=== PATIENT | female | born 1985 | race Caucasian/White ===

== ENCOUNTER 2019-09-13 19:52 | Emergency (ER) | payer BC ==
[~2019-09-13] VITALS: Ht 175.3 cm; Wt 68.9 kg
--- NOTE | 2019-09-13 20:33 | NUR ---
PT TO ROOM FROM LOBBY
--- NOTE | 2019-09-13 21:02 | NUR ---
DR. CORNEJO AT BEDSIDE.
[2019-09-13 21:52] VITALS: BP 113/74
--- NOTE | 2019-09-13 21:52 | NUR ---
PT REPORTS RELIEF AFTER DRINKING WATER. ALL VITALS STABLE. ERP AWARE.
--- NOTE | 2019-09-13 22:12 | NUR ---
Patient/Caregiver given discharge instructions and they have confirmed that they understand the instructions. Patient ambulatory with steady gait.
== END 2019-09-13 22:32 | disposition home or self-care (01) ==
LOC: ED 21:13
DX: S62.515A Nondisplaced fracture of proximal phalanx of left thumb, initial encounter for closed fracture (principal); S01.81XA Laceration without foreign body of other part of head, initial encounter; S60.411A Abrasion of left index finger, initial encounter; S60.413A Abrasion of left middle finger, initial encounter; S60.415A Abrasion of left ring finger, initial encounter; S60.417A Abrasion of left little finger, initial encounter; W01.0XXA Fall on same level from slipping, tripping and stumbling without subsequent striking against object, initial encounter; Y93.89 Activity, other specified; Y92.410 Unspecified street and highway as the place of occurrence of the external cause; Y99.8 Other external cause status
CPT/HCPCS: 12011; 29130; 99283